=== PATIENT | male | born 1965 | race Caucasian/White ===

== ENCOUNTER 2021-08-24 06:47 | Day surgery (SDC) | payer OTHER ==
[~2021-08-24] VITALS: Ht 177.8 cm; Wt 90.7 kg
[~2021-08-24 06:47] MED LIST: IBUPROFEN600 MG PO
[2021-08-24] MEDS ORDERED: TORADOL PO (09:23)
[2021-08-24 10:39] VITALS: BP 156/82
== END 2021-08-24 10:45 | disposition home or self-care (01) | DRG 352 ==
LOC: ORM 06:47
PROVIDERS: ATTEND Surgery
PROC: 0YU54JZ Supplement Right Inguinal Region with Synthetic Substitute, Percutaneous Endoscopic Approach (ICD-10-PCS; principal; 2021-08-24)
PROC: 0VBF4ZZ Excision of Right Spermatic Cord, Percutaneous Endoscopic Approach (ICD-10-PCS; 2021-08-24)
DX: K40.90 Unilateral inguinal hernia, without obstruction or gangrene, not specified as recurrent (principal); D17.6 Benign lipomatous neoplasm of spermatic cord
CPT/HCPCS: C1781; C9290; J0131